=== PATIENT | female | born 1995 | race African-American/Black ===

== ENCOUNTER → 2016-09-09 | Outpatient (CLI) | payer OTHER ==
[~2016-09-09] MED LIST: LEVO50TA6 PO
--- NOTE | 2016-09-09 08:22 | DIAGNOSTIC IMAGING REPORT ---
ABDOMEN LIMITED (US) CLINICAL HISTORY: 21 years-old Female presenting with EPIGASTRIC ABDOMINAL PAIN, NAUSEA VOMITING AND DIARRHEA. TECHNIQUE: Real-time grayscale and limited color Doppler ultrasound imaging of the abdomen limited to the right upper quadrant was performed. COMPARISON: None. FINDINGS: Pancreas: Visualized portions of the pancreatic head and body normal. Liver: Normal echogenicity and echotexture. No sonographic evidence of hepatic mass. Biliary: No intrahepatic biliary ductal dilatation. Common bile duct measures up to 5 mm in diameter. Gallbladder: No evidence of gallstones, gallbladder wall thickening, gallbladder distention, or pericholecystic fluid or inflammatory change. Right kidney: Normal in appearance and size, measuring 9.1 cm. No hydronephrosis. Ascites: None. IMPRESSION: Normal right quadrant ultrasound. No cholelithiasis or cholecystitis. Electronically signed by: Jayro Grant M.D. 09/09/2016 8:21 AM Dictated Date/Time: 09/09/2016 8:17 AM
== END | disposition home or self-care (01) ==
LOC: C.ULTR 07:51
PROVIDERS: ATTEND Physician Assistant
DX: R10.13 Epigastric pain (principal); R11.2 Nausea with vomiting, unspecified